=== PATIENT | female | born 1970 | race Caucasian/White ===

== ENCOUNTER 2021-03-23 08:14 | Outpatient (REF) | payer BC, SELFPAY ==
--- NOTE | ~2021-03-23 | MM_ITS ---
EXAMINATION: MM SCREENING DIGITAL BREAST TOMOSYNTHESIS, BILATERAL CLINICAL INFORMATION: Screening. Asymptomatic. The lifetime risk of breast cancer based on the Tyrer-Cuzick Model is 8%. COMPARISON: Mammography: August 23, 2019 and studies dating back to January 09, 2010 TECHNIQUE: Digital breast tomosynthesis is performed in both the craniocaudal and mediolateral oblique views along with computer-aided detection (CAD). Synthesized 2D images are generated from the tomosynthesis. FINDINGS: The breasts are extremely dense, which lowers the sensitivity of mammography (ACR BI-RADS breast composition Category d). There are no significant masses, abnormal calcifications, or other abnormalities. MM/MM tomosynthesis screening BI IMPRESSION: There are no significant changes from prior study. ASSESSMENT: BI-RADS 1: Negative RECOMMENDATION: Routine annual mammography screening. This patient's information was entered into a reminder system with a target due date for their next mammogram.
== END 2021-03-23 08:15 | disposition home or self-care (01) ==
LOC: HO.MAMMO 08:14
PROVIDERS: Visit Provider Family Medicine
DX: Z12.31 Encounter for screening mammogram for malignant neoplasm of breast (principal)
CPT/HCPCS: 77063; 77067

== ENCOUNTER 2023-02-27 07:41 | Outpatient (REF) | payer BC, SELFPAY | END 2023-02-27 07:42 | disposition home or self-care (01) | LOC: HO.MAMMO 07:41 | PROVIDERS: Visit Provider Family Medicine | DX: Z12.31 Encounter for screening mammogram for malignant neoplasm of breast (principal) | CPT/HCPCS: 77063; 77067 ==

== ENCOUNTER → 2023-02-27 07:45 | Outpatient (BNV) | payer BC, SELFPAY | PROVIDERS: Visit Provider Radiology Diagnostic Radiology | DX: Z12.31 Encounter for screening mammogram for malignant neoplasm of breast (principal) | CPT/HCPCS: 77063; 77067 ==

== ENCOUNTER 2024-03-15 07:34 | Outpatient (REF) | payer BC, SELFPAY ==
--- NOTE | ~2024-03-15 | MM_ITS ---
EXAMINATION: MM SCREENING DIGITAL BREAST TOMOSYNTHESIS, BILATERAL CLINICAL INFORMATION: Screening. Asymptomatic. COMPARISON: Mammography: Comparison is made with available priors TECHNIQUE: Digital breast mammography with tomosynthesis is performed in both the craniocaudal and mediolateral oblique views along with computer-aided detection (CAD). FINDINGS: The breasts are extremely dense, which lowers the sensitivity of mammography (ACR BI-RADS breast composition Category d). There are no significant masses, abnormal calcifications, or other abnormalities. MM/MM tomosynthesis screening BI IMPRESSION: No mammographic evidence of malignancy. ASSESSMENT: BI-RADS BI-RADS 1 - Negative RECOMMENDATION: Routine annual mammography screening. 1 year F/U This examination should not preclude the clinical evaluation of a suspicious palpable abnormality. This patient's information was entered into a reminder system with a target due date for their next mammogram. Electronically signed by: Mary Castro DO 03/29/2024 09:21 AM EDKatiuska
== END 2024-03-15 07:35 | disposition home or self-care (01) ==
LOC: HO.MAMMO 07:34
PROVIDERS: PCP Family Medicine; Visit Provider Family Medicine
DX: Z12.31 Encounter for screening mammogram for malignant neoplasm of breast (principal)
CPT/HCPCS: 77063; 77067

== ENCOUNTER → 2024-03-15 07:45 | Outpatient (BNV) | payer BC, SELFPAY | PROVIDERS: PCP Family Medicine; Visit Provider Internal Medicine | DX: Z12.31 Encounter for screening mammogram for malignant neoplasm of breast (principal) | CPT/HCPCS: 77063; 77067 ==

== ENCOUNTER 2025-03-21 07:44 | Outpatient (REF) | payer BC, SELFPAY ==
--- NOTE | ~2025-03-21 | MM_ITS ---
EXAMINATION: MM SCREENING DIGITAL BREAST TOMOSYNTHESIS, BILATERAL CLINICAL INFORMATION: Screening. Asymptomatic. COMPARISON: Comparison made to multiple prior, most recent March 15, 2024, and most remote May 09, 2017. TECHNIQUE: Digital breast tomosynthesis is performed in mediolateral oblique and craniocaudal views along with computer-aided detection (CAD). Synthesized 2D images are generated from the tomosynthesis. FINDINGS: BREAST COMPOSITION: The breasts are extremely dense, which lowers the sensitivity of mammography (ACR BI-RADS breast composition Category d). BILATERAL BREASTS: No significant masses, suspicious calcifications or other abnormalities are seen in either breast. MM/MM tomosynthesis screening BI IMPRESSION: BILATERAL BREASTS: Negative, no mammographic evidence of malignancy. Normal interval follow-up is recommended in 12 months. ASSESSMENT: BI-RADS 1 - Negative RECOMMENDATION: Routine annual mammography screening. FOLLOW-UP: 1 year F/U This examination should not preclude the clinical evaluation of a suspicious palpable abnormality. This patient's information was entered into a reminder system with a target due date for their next mammogram. Electronically signed by: Dwight Napier MD 03/21/2025 07:00 PM EDT
--- OUTSIDE RECORDS SUMMARY | 2025-03-21 07:47 | XMS_ITS | Clinical Summary ---
Author Organization [facility] Address [address] [place] [phone] Phone Care Team Providers Care Woodworking Machine Feeder Name Role Phone Sj Ureña MD, MPH Primary Care Provider + Allergies No known active allergies Medications METOPROLOL SUCCINATE ORAL Activ e bupropion HCl (WELLBUTRIN ORAL) Active LISINOPRIL ORAL Acti ve amLODIPine (NORVASC) 5 MG tablet Take 1 tablet by mouth every morning. 01/01/2023 Active butalbital-acet aminophen-caffe ine (FIORICET, ESGIC) 50-325-40 mg per tablet Take 1 tablet by mouth every 4 (four) hours as needed for pain (specific location in comments) or headache. 12 tablet 01/26/2023 Active Active Problems No known active problems Social History Tobacco Use Types Packs/Day Years Used Date Smoking Tobacco: Never Smokeless Tobacco: Never Alcohol Use Standard Drinks/Week Comments Yes 1 (1 standard drink = 0.6 oz pur e alcohol) Education Answer Date Recorded Are you interested in more education? Not on hiral e 10/31/2022 Are you concerned about learning? Not on file 10/31/2022 No 10/31/2022 No 10/31/2022 Digital Access Answer Date Recorded No 11/29/2022 No 11/29/2022 Reliable internet access at home? Not on file 11/29/2022 Device with a working camera? Not on file Comments Unknown Sex and Gender Information Value Date Recorded Sex Assigned at Female 03/02/2018 7:44 PM EDT Legal Sex Female 7:38 PM EDT Gender Identity Female 03/02/2018 7:44 PM EDT Sexual Orientation Straight 03/02/2018 7: 44 PM EDT Last Filed Vital Signs Vital Sign Reading Time Taken Comments Blood Pressure 148/78 01/26/2023 6:01 PM EDT Pulse 75 01/26/2023 6:01 PM EDT Temperature 36.3 C (97.3 F) 01/26/2023 6:01 PM EDT Respiratory Rate 18 01/26/2023 6:01 PM EDT Oxygen Saturation 99% 01/26/2023 6:01 PM EDT Inhaled Oxygen Concentration - - Weight 61.2 kg (135 lb) 03/27/2021 1:58 PM EDT Height 165.1 cm (5' 5 ) 03/27/2021 1:58 PM EDT Body Mass Index 22.47 03/27/2021 1:58 PM EDT Plan of Treatment Health Maintenance Due Date Last Done Comments LIPID PANEL 1970 DEPRESSION SCREENING 1981 HEPATITIS C SCREENING 1987 HIV ONE-TIME SCREENING (18-65 YEARS) 1987 PAP SMEAR 1990 MAMMOGRAM 2009 COLOGUARD 2014 FIT TEST 2014 FOBT 2014 SIGMOIDOSCOPY 2014 VIRTUAL COLONOSCOPY 2014 PNEUMOCOCCAL VACCINES (50+ years) (1 of 1 - PCV) 2019 ZOSTER VACCINES (1 of 2) 2019 CREATININE LEVEL 04/29/2022 04/29/2021 POTASSIUM LEVEL 04/29/2022 04/29/2021 INFLUENZA VACCINE (#1) 2025 , 05/20/2021, 04/13/2020, Additional history exists COVID-19 VACCINE (2024- season) 2025 05/02/2022, 04/05/2021, 10/04/2020, Additional history exists Adult Td,Tdap Booster 12/30/2028 12/30/2018 COLONOSCOPY 03/27/2031 03/27/2021 COLORECTAL CANCER SCREENING 03/27/2031 SMOKING STATUS SCREENING (Once After 26 Yrs) Completed 01/26/2023 HEPATITIS A VACCINES Aged Out No long er eligible based on patient's age to complete this topic HIB VACCINES Aged Out No longer eligi ble based on patient's age to complete this topic MENINGOCOCCAL VACCINES (ACWY) Aged Out No longer eligible based on patient's age to complete this topic MENINGOCOCCAL VACCINES (B) Aged Out N o longer eligible based on patient's age to complete this topic Medical Devices Not on file Procedures Procedure Name Priority Date/Time Associated Diagnosis Comments BASIC METABOLIC PANEL STAT 04/29/2021 2:03 PM EDT ENDOSCOPY, COLON 03/27/2021 3:14 PM EDT from Last 3 Months or Most Recently Relevant to Health Maintenance Results * Basic metabolic panel (04/29/2021 2:03 PM EDT) SODIUM 139 133 - 146 mmol/L [facility] CHLORIDE 103 96 - 108 mmol/L [facility] POTASSIUM 3.7 3.3 - 5.1 mmol/L [facility] CO2 25 21 - 35 mmol/L [facility] BUN 15 6 - 19 mg/dL [facility] CREATININE 0.80 0.5 - 1.5 mg/dL [facility] GLUCOSE 83 70 - 99 mg/dL [facility] CALCIUM 9.2 8.4 - 10.3 mg/dL [facility] EGFR 85 >59 mL/min/1.7 3m2 [facility] Comment:Estimated glomerular filtration rate calculated using the CKD-EPI equation. ANION GAP 15 10 - 20 mmol/L [facility] Blood 04/29/2021 2:03 PM EDT 04/29/2021 2:10 PM EDT Edna Montague MD LAB BLOOD ORDERABLES Final Result [facility] [address] [place] [address] * ENDOSCOPY, COLON (03/27/2021 3:14 PM EDT) Narrative Transcriptions Tom Thomas MD - 03/27/2021 3:14 PM EDT Patient Name: Love Hitchcock Attending MD:: TOM THOMAS MD Procedure Date: 03/27/2021 3:14 PM Date of : 1970 Age: 50 Admit Type: Outpatient Gender: Female Room: [place] [address] Referring MD: Sj Ureña MD Exam Type: Colonoscopy Indications: Screening for colorectal malignant neoplasm, Colon cancer screening in patient at increased risk:Family history of 1st-degree relative with colon polyps,This is the patient's first colonoscopy Medications: Monitored Anesthesia Care Procedure: Informed consent was obtained from the patient after discussion of the indications, limitations, alternatives, benefits, and risks of the procedure. Risks specifically discussed include but are not limited to medication reactions, missed lesions, bleeding, perforation, or the need for emergentsurgery. Throughout the procedure, the patient's bloodpressure, pulse, end-tidal CO2, and oxygen saturations were monitored continuously. The Olympus adult variable colonoscope [id number] #3was introduced through the anus and advanced to the terminal ileum, with identification of theappendiceal orifice and IC valve. The colonoscopy was performed without difficulty. The patient tolerated theprocedure well. The quality of the bowel preparation wasgood. Complications: No immediate complications. Estimated blood loss:None. Findings: The terminal ileum appeared normal. Examination of the right colon was repeated in retroflexion and again in NBI. Retroflexion was also performed in the rectum. The entire examined colon appeared normal. Impression: - The examined portion of the ileum was normal. - The entire examined colon is normal. - No specimens collected. Recommendation: - Patient has a contact number available for emergencies. The signs and symptoms of potential delayed complications were discussed with thepatient. Return to normal activities tomorrow. Writtendischarge instructions were provided to the patient. - Repeat colonoscopy in 5 years for screeningpurposes. Tom Thomas TOM THOMAS MD 03/27/2021 3:43:16 PM This report has been signed electronically. Number of Addenda: 0 Note Initiated On: 03/27/2021 3:14 PM Procedure Code(s): --- Professional --- 29005, Colonoscopy, flexible; diagnostic, including collection of specimen(s) by brushing or washing, when performed (separateprocedure) --- Technical --- 18525, Colonoscopy, flexible; diagnostic, including collection of specimen(s) by brushing or washing, when performed (separateprocedure) CPT copyright 2018 [employer]. All rights reserved. The codes documented in this report are preliminary and upon receptionist airline lounge reviewmay be revised to meet current compliance requirements. Procedure Date: 03/27/2021 3:14:[address] [place] [id number] Sj Ureña MD, MPH GI PROCEDURE ORDERABLES Final Result from Last 3 Months or Most Recently Relevant to Health Maintenance Insurance [facility] [address] [address] [place] [address] [place] [address] [facility] [place] [address] Care Teams Woodworking Machine Feeder Relationship Specialty Start Date End Date Sj Ureña MD, MPH [address] [place] [id number] [email or web address] PCP - General Family Medicine 03/13/21 Additional Source Comments The information contained in this document represents components of the legal health record. It is not the complete legal health record.[facility]
--- OUTSIDE RECORDS SUMMARY | 2025-03-21 07:47 | XMS_ITS | Encounter Summary ---
Author Organization [facility] Address [address] [place] [phone] Phone Care Team Providers Care Strategy Specialist Name Role Phone Janett Blanton MATTRESS FILLER Primary Care Provider [phone] Sj Ureña MD, MPH Primary Care Provider + Encounter Details Date Type Department Care Team (Late st Contact Info) Description 03/02/2018 Procedure Pass [facility], Ct Scan - [address] [address] Social History Tobacco Use Types Packs/Day Years Used Date Smoking Tobacco: Never Smokeless Tobacco: Never Alcohol Use Standard Drinks/Week Comments Yes 1 (1 standard drink = 0.6 oz pur e alcohol) Comments Unknown Sex and Gender Information Value Date Recorded Sex Assigned at Female 03/02/2018 7:44 PM EDT Legal Sex Female 7:38 PM EDT Gender Identity Female 03/02/2018 7:44 PM EDT Sexual Orientation Straight 03/02/2018 7: 44 PM EDT documented as of this encounter Plan of Treatment Not on file documented as of this encounter Visit Diagnoses Not on filedocumented in this encounter Care Teams Strategy Specialist Relationship Specialty Start Date End Date Janett Blanton, MATTRESS FILLER PCP - General Family Medicine 03/02/18 03/12/21 Sj Ureña MD, MPH [address] [place] [address] [email or web address] PCP - General Family Medicine 03/13/21 documented as of this encounter Additional Source Comments The information contained in this document represents components of the legal health record. It is not the complete legal health record.[facility]
--- OUTSIDE RECORDS SUMMARY | 2025-03-21 07:47 | XMS_ITS | Encounter Summary ---
Author Organization [facility] Address [address] [place] [phone] Phone Care Team Providers Care Real Estate Paralegal Name Role Phone Sj Ureña MD, MPH Primary Care Provider + Encounter Details Date Type Department Care Team (Late st Contact Info) Description 03/27/2021 Procedure Pass [facility] Endoscopy Admitting Dept Virtual Department [address] [place] [address] Social History Tobacco Use Types Packs/Day Years [...] on filedocumented in this encounter Care Teams Real Estate Paralegal Relationship Specialty Start Date End Date Sj Ureña MD, MPH [address] [place] [address] PCP - General Family Medicine 03/13/21 documented as of this encounter Additional Source Comments The information contained in this document represents components of the legal health record. It is not the complete legal health record.[facility]
== END 2025-03-21 07:45 | disposition home or self-care (01) ==
LOC: HO.MAMMO 07:44
PROVIDERS: PCP Family Medicine; Visit Provider Family Medicine
DX: Z12.31 Encounter for screening mammogram for malignant neoplasm of breast (principal)
CPT/HCPCS: 77063; 77067

== ENCOUNTER → 2025-03-21 07:45 | Outpatient (BNV) | payer BC, SELFPAY | PROVIDERS: PCP Family Medicine; Visit Provider Radiology Body Imaging | DX: Z12.31 Encounter for screening mammogram for malignant neoplasm of breast (principal) | CPT/HCPCS: 77063; 77067 ==